=== PATIENT | female | born 1985 | race American Indian/Alaskan Native ===

== ENCOUNTER 2017-10-20 20:00 | Emergency (ER) | payer SELFPAY ==
[2017-10-21 01:48] VITALS: BP 110/70
[2017-10-21] MEDS ORDERED: MOTRIN PO ONE (03:23)
--- NOTE | 2017-10-21 03:23 | Emergency Department Report ---
ED Extremity Problem HPI - General Chief complaint: Extremity Injury, Lower Stated complaint: LT LEG PAIN Time Seen by Provider: 10/21/17 01:13 Source: patient, family Mode of arrival: Ambulatory Limitations: No Limitations - History of Present Illness Initial comments: Patient here complaining of pain to her left leg that started last night. She says she says similar incident in the past. She says she is a history of spasm to her left thigh and upper leg and when she has spasms she gets bruising. Patient denies ever having any ultrasound but reports she has been to the doctor about this problem. Patient is visiting from [place] and that she'll be here for about another month. She denies any chest pain or shortness of breath. Patient recently traveled from [place] via airplane. Denies being on control. Denies any calf pain. Patient does not have history of DVT she said that her family member told her that it might be a blood clot when she gets the bruise in she's never been diagnosed with DVT. She has a history of asthma. Denies any numbness or chilling to extremities. Pain is 8-10 and achy worse with walking and better with rest. Denies any clotting disorder. She does have family history of DVT. Denies any abdominal or back pain. Patient said she doesn't remember if she injured her leg last night she just woke up this morning and saw the bruise then to her left proximal leg in her lateral mid knees knee. Denies taking any medication. Pain worse with walking and better with rest. As noted in triage note that patient said that her left leg started last night and that calf swollen after fall. Patient told me that she did not fall he does not have any swelling to her calf. MD Complaint: extremity pain Onset/Timin -: days(s) Location: left, lower extremity History of Same: Yes -: No myalgia, Yes arthralgia, No fever, No associated dyspnea, No associated chest pain Radiation: none Severity scale (0 -10): 8 Quality: aching Consistency: intermittent Improves with: immobilization, rest Worsens with: weight bearing, walking, exertion, palpation Associated Symptoms: arthralgias, rash (reports bruising to upper leg). denies : chest pain, shortness of breath, fever, myalgias - Related Data Previous Rx's Medication Instructions Recorded Last Taken Type Ibuprofen [Motrin] 600 mg PO Q8H PRN #15 tablet 10/21/17 Unknown Rx Allergies Allergy/AdvReac Type Severity Reaction Status Date / Time No Known Allergies Allergy Unverified 10/20/17 20:06 ED Review of Systems ROS: Stated complaint: LT LEG PAIN Other details as noted in HPI Comment: All other systems reviewed and negative Constitutional: no symptoms reported Respiratory: no symptoms reported Cardiovascular: denies: chest pain, palpitations, dyspnea on exertion, orthopnea , edema, syncope, paroxysmal nocturnal dyspnea Gastrointestinal: denies: abdominal pain, nausea, vomiting Genitourinary: denies: dysuria, hematuria Musculoskeletal: arthralgia. denies: back pain, joint swelling, myalgia Skin: other (bruising to upper leg) Neurological: denies: headache, weakness, numbness, paresthesias, confusion, abnormal gait, vertigo ED Past Medical Hx - Past Medical History Previous Medical History?: Yes Hx Asthma: Yes - Surgical History Past Surgical History?: No - Family History Family history: hypertension, vascular disease - Social History Smoking Status: Former Smoker Substance Use Type: None, Marijuana - Medications Home Medications: Home Medications Medication Instructions Recorded Confirmed Last Taken Type Ibuprofen [Motrin] 600 mg PO Q8H PRN #15 tablet 10/21/17 Unknown Rx ED Physical Exam - General Limitations: No Limitations General appearance: alert, in no apparent distress - Head Head exam: Present: atraumatic, normocephalic, normal inspection, other (normal exam) - Eye Eye exam: Present: normal appearance, PERRL, EOMI Pupils: Present: normal accommodation - ENT ENT exam: Present: normal exam, normal orophraynx, mucous membranes moist - Neck Neck exam: Present: normal inspection, full ROM, other (no C-spine tenderness). Absent: tenderness, meningismus, lymphadenopathy - Respiratory Respiratory exam: Present: normal lung sounds bilaterally. Absent: respiratory distress, wheezes, rales, rhonchi, stridor, chest wall tenderness, accessory muscle use, decreased breath sounds, prolonged expiratory - Cardiovascular Cardiovascular Exam: Present: regular rate, normal rhythm, normal heart sounds. Absent: systolic murmur, diastolic murmur - GI/Abdominal GI/Abdominal exam: Present: soft, rigid. Absent: distended, tenderness, guarding, rebound, normal bowel sounds, organomegaly, mass, bruit, pulsatile mass, hernia - Extremities Exam Extremities exam: Present: normal inspection, full ROM, tenderness ( proximal leg, left), normal capillary refill, other (no clubbing, cyanosis or edema to extremities. No neurovascular compromise. +2 pulses in all extremities. Patient with bruising to left proximal leg. No laceration. +5/5 strength in all extremities.). Absent: pedal edema, joint swelling, calf tenderness - Expanded Lower Extremity Exam Left Hip exam: Present: normal inspection, full ROM, pelvic stability. Absent: tenderness, swelling, abrasion, laceration, ecchymosis, deformity, crepidus, dislocation, erythema, external rotation, internal rotation, shortening Upper Leg exam: Present: normal inspection, full ROM. Absent: tenderness, swelling, abrasion, laceration, ecchymosis, deformity, crepidus, dislocation, erythema Knee exam: Present: normal inspection, full ROM, full knee extension. Absent: tenderness, swelling, abrasion, laceration, ecchymosis, deformity, crepidus, dislocation, erythema, effusion, pain w/ pronation/supination, posterior draw sign, pain/laxity with valgus, pain/laxity with varus Lower Leg exam: Present: normal inspection, full ROM, tenderness, ecchymosis ( Proximal left inner leg with mild superficial bruising). Absent: swelling, abrasion, laceration, deformity, crepidus, dislocation, erythema, palpable cord , Cheryl's sign Ankle exam: Present: normal inspection, full ROM. Absent: tenderness, swelling , abrasion, laceration, ecchymosis, deformity, crepidus, dislocation, erythema Foot/Toe exam: Present: normal inspection, full ROM. Absent: tenderness, swelling, abrasion, laceration, ecchymosis, deformity, crepidus, dislocation, erythema, amputation, puncture wound, foreign body, calcaneal tenderness, tenderness at base of 5th metatarsal, nail avulsion, subungual hematoma Neuro vascular tendon exam: Present: no vascular compromise. Absent: pulse deficit, abnormal cap refill, motor deficit, sensory deficit, tendon deficit, extremity cold to touch, pallor, abnormal 2-point discrimination, decreased fine /light touch, foot drop, peroneal nerve deficit, significant pain with passive ROM of distal joint Gait: Positive: observed and normal - Back Exam Back exam: Present: normal inspection, full ROM, other (ambulates without any difficulties). Absent: tenderness, CVA tenderness (R), CVA tenderness (L), muscle spasm, paraspinal tenderness, vertebral tenderness, rash noted - Neurological Exam Neurological exam: Present: alert, oriented X3, normal gait, reflexes normal. Absent: motor sensory deficit - Psychiatric Psychiatric exam: Present: normal affect, normal mood - Skin Skin exam: Present: warm, dry, intact, ecchymosis (superficial ecchymotic area to the left proximal leg. Tender to palpate.). Absent: urticaria, vesicles - Expanded Skin Exam Expanded Type of lesion: Present: other (ecchymosis) Distribution of rash: LLE Description of rash: Present: size (2 x 2 centimeter, circular), tenderness, other (ecchymosis). Absent: erythematous, swelling ED Course Vital Signs 10/20/17 10/21/17 10/21/17 20:07 01:47 03:36 Temperature 98 F Pulse Rate 66 71 Respiratory 18 18 18 Rate Blood Pressure 104/84 Blood Pressure 110/70 [Left] O2 Sat by Pulse 99 97 Oximetry - Reevaluation(s) Reevaluation #1: 10/21/17 05:15 She received Motrin 800 mg emergency room for pain and voice relief of pain. ED Medical Decision Making - Lab Data Result diagrams: 10/21/17 04:02 10/21/17 04:02 Lab Results 10/21/17 10/21/17 10/21/17 Range/Units 04:02 04:02 04:02 WBC 7.4 (4.5-11.0) K/mm3 RBC 3.93 (3.65-5.03) M/mm3 Hgb 12.3 (10.1-14.3) gm/dl Hct 36.4 (30.3-42.9) % MCV 93 (79-97) fl MCH 31 (28-32) pg MCHC 34 (30-34) % RDW 12.6 L (13.2-15.2) % Plt Count 169 (140-440) K/mm3 Lymph % (Auto) 37.1 H (13.4-35.0) % [place] % (Auto) 10.1 H (0.0-7.3) % Eos % (Auto) 1.7 (0.0-4.3) % Baso % (Auto) 0.8 (0.0-1.8) % Lymph # 2.8 (1.2-5.4) K/mm3 [place]ow # 0.7 (0.0-0.8) K/mm3 Eos # 0.1 (0.0-0.4) K/mm3 Baso # 0.1 (0.0-0.1) K/mm3 Seg Neutrophils % 50.3 (40.0-70.0) % Seg Neutrophils # 3.7 (1.8-7.7) K/mm3 PT 12.4 (12.2-14.9) Sec. INR 0.88 (0.87-1.13) APTT 26.0 (24.2-36.6) Sec. D-Dimer < 135 (0-234) ng/mlDDU Sodium 138 (137-145) mmol/L Potassium 3.6 (3.6-5.0) mmol/L Chloride 100.7 (98-107) mmol/L Carbon Dioxide 24 (22-30) mmol/L Anion Gap 17 mmol/L BUN 9 (7-17) mg/dL Creatinine 0.7 (0.7-1.2) mg/dL Estimated GFR > 60 ml/min BUN/Creatinine Ratio 13 % Glucose 87 (65-100) mg/dL Calcium 8.8 (8.4-10.2) mg/dL HCG, Qual (Negative) 10/21/17 Range/Units 04:02 WBC (4.5-11.0) K/mm3 RBC (3.65-5.03) M/mm3 Hgb (10.1-14.3) gm/dl Hct (30.3-42.9) % MCV (79-97) fl MCH (28-32) pg MCHC (30-34) % RDW (13.2-15.2) % Plt Count (140-440) K/mm3 Lymph % (Auto) (13.4-35.0) % Bartow % (Auto) (0.0-7.3) % Eos % (Auto) (0.0-4.3) % Baso % (Auto) (0.0-1.8) % Lymph # (1.2-5.4) K/mm3 [place] # (0.0-0.8) K/mm3 Eos # (0.0-0.4) K/mm3 Baso # (0.0-0.1) K/mm3 Seg Neutrophils % (40.0-70.0) % Seg Neutrophils # (1.8-7.7) K/mm3 PT (12.2-14.9) Sec. INR (0.87-1.13) APTT (24.2-36.6) Sec. D-Dimer (0-234) ng/mlDDU Sodium (137-145) mmol/L Potassium (3.6-5.0) mmol/L Chloride (98-107) mmol/L Carbon Dioxide (22-30) mmol/L Anion Gap mmol/L BUN (7-17) mg/dL Creatinine (0.7-1.2) mg/dL Estimated GFR ml/min BUN/Creatinine Ratio % Glucose (65-100) mg/dL Calcium (8.4-10.2) mg/dL HCG, Qual Negative (Negative) - Medical Decision Making ED course: Patient here complaining of left upper leg pain with bruising. She says she's had this in the past. She told triage nurse that she fell last night but she reports to me that she did not fall. Physical finding for ecchymotic area to the proximal leg without any calf involvement. Wells criteria score patient at 0 and gave option to do d-dimer. D-dimer within normal limits. CBC and chemistry are within normal limits and patient test is negative. PT PTT normal limits. Patient was given Motrin 800 mg emergency room for pain. I discussed with her her test results and I discussed with her she needs to rest, ice, compress and elevate affected area over the next 3 days and take Motrin as prescribed. Patient is visiting from [place] and doesn't know when she is going back so I gave her a [facility] and told her to call to schedule an appointment for family practice. Patient discharged home with prescription for Motrin. I discussed this case with Dr. Gaming with patient presentation of leg pain and similar incident in the past with bruising in, lab result discussed included d- dimer and in agreement that the patient can be discharged home to follow-up at [facility]. Patient was undescended discharge instruction and treatment plan and discharged home with her family. Critical care attestation.: If time is entered above; I have spent that time in minutes in the direct care of this critically ill patient, excluding procedure time. ED Disposition Clinical Impression: Pain in left lower leg, Ecchymosis Disposition: - TO HOME OR SELFCARE Is pt being admited?: No Does the pt Need Aspirin: No Condition: Stable Instructions: Arthralgia (ED) Additional Instructions: Please call [facility] and schedule an appointment for follow-up visit on Monday. This will be for 09/12/2017. Take Motrin as prescribed. If symptoms worsens, return to the emergency room. rest, ice, elevate affected area over the next 72 hours Prescriptions: Ibuprofen [Motrin] 600 mg PO Q8H PRN #15 tablet PRN Reason: Pain Referrals: PRIMARY CAREMD [Primary Care Provider] - 10/23/17
[2017-10-21 04:20] LABS: Basophils # (Auto) 0.1 K/mm3 (0.0-0.1); Basophils % (Auto) 0.8 % (0.0-1.8); Eosinophils # (Auto) 0.1 K/mm3 (0.0-0.4); Eosinophils % (Auto) 1.7 % (0.0-4.3); Hematocrit 36.4 % (30.3-42.9); Hemoglobin 12.3 gm/dl (10.1-14.3); Lymphocytes # (Auto) 2.8 K/mm3 (1.2-5.4); Lymphocytes % (Auto) 37.1 % (13.4-35.0); Mean Corpuscular HGB Conc 34 % (30-34); Mean Corpuscular Hemoglobin 31 pg (28-32); Mean Corpuscular Volume 93 fl (79-97); Monocytes # (Auto) 0.7 K/mm3 (0.0-0.8); Monocytes % (Auto) 10.1 % (0.0-7.3); Platelet Count 169 K/mm3 (140-440); Red Blood Count 3.93 M/mm3 (3.65-5.03); Red Cell Distribution Width 12.6 % (13.2-15.2)
[2017-10-21 04:31] LABS: INR 0.88 (0.87-1.13)
[2017-10-21 04:36] LABS: BUN/Creatinine Ratio 13; Blood Urea Nitrogen 9 mg/dL (7-17); Calcium 8.8 mg/dL (8.4-10.2); Hemolysis Index 0
== END 2017-10-21 05:55 | disposition home or self-care (01) ==
LOC: ED 20:00
DX: S80.12XA Contusion of left lower leg, initial encounter (principal); J45.909 Unspecified asthma, uncomplicated; F12.10 Cannabis abuse, uncomplicated; Z87.891 Personal history of nicotine dependence; W19.XXXA Unspecified fall, initial encounter; Y93.89 Activity, other specified; Y99.8 Other external cause status; Y92.89 Other specified places as the place of occurrence of the external cause
CPT/HCPCS: 36415; 80048; 84703; 85025; 85379; 85610; 85730; 99283

== ENCOUNTER 2019-07-07 09:23 | Emergency (ER) | payer OTHER ==
[2019-07-07 09:36] VITALS: BP 100/69
[2019-07-07] MEDS ORDERED: IBUPROFEN 800 MG TAB PO ONE (11:49)
--- NOTE | 2019-07-07 11:57 | Emergency Department Report ---
- General Chief Complaint: Upper Respiratory Infection Stated Complaint: CHEST PX/DIZZY/HEADACHE Source: patient Mode of arrival: Ambulatory Limitations: No Limitations - History of Present Illness Initial Comments: 33-year-old female complaining of 3 days of dry cough chills and body aches and headache. Chest hurts with coughing only. Denies fever, no vomiting or diarrhea. Smoker denies any past medical history. MD Complaint: cough Quality: aching Consistency: constant Improves With: OTC cold medicine Worsens With: nothing Associated Symptoms: chills, myalgias, headache, nasal congestion, cough. denies: chest pain, shortness of breath, abdominal pain, nausea, vomiting, diarrhea, dysuria, rash, confusion, right sweats, weight loss, ear pain Treatments Prior to Arrival: "cold medicine" - Related Data Previous Rx's Medication Instructions Recorded Last Taken Type ALBUTEROL Inhaler (OR & NICU) 2 puff IH Q4HR PRN #1 inhalation 09/05/18 Unknown Rx [ProAir HFA Inhaler] predniSONE [Deltasone] 20 mg PO DAILY #15 tablet 09/05/18 Unknown Rx Ibuprofen [Motrin 600 MG tab] 600 mg PO Q8H PRN #15 tablet 07/07/19 Unknown Rx Allergies Allergy/AdvReac Type Severity Reaction Status Date / Time No Known Allergies Allergy Verified 07/07/19 09:24 ED Review of Systems ROS: Stated complaint: CHEST PX/DIZZY/HEADACHE Other details as noted in HPI Comment: All other systems reviewed and negative Constitutional: chills, malaise ENT: denies: ear pain, throat pain Respiratory: cough. denies: shortness of breath, SOB with exertion, wheezing Cardiovascular: denies: chest pain, palpitations, dyspnea on exertion Endocrine: no symptoms reported Gastrointestinal: denies: abdominal pain, nausea, vomiting, diarrhea, constip ation Musculoskeletal: myalgia. denies: back pain Skin: denies: rash, lesions Neurological: headache. denies: weakness, numbness, paresthesias, confusion, abnormal gait, vertigo ED Past Medical Hx - Past Medical History Previous Medical History?: Yes Hx Asthma: Yes - Surgical History Past Surgical History?: No - Social History Smoking Status: Current Some Day Smoker Substance Use Type: Marijuana - Medications Home Medications: Home Medications Medication Instructions Recorded Confirmed Last Taken Type ALBUTEROL Inhaler (OR & NICU) 2 puff IH Q4HR PRN #1 inhalation 09/05/18 Unknown Rx [ProAir HFA Inhaler] predniSONE [Deltasone] 20 mg PO DAILY #15 tablet 09/05/18 Unknown Rx Ibuprofen [Motrin 600 MG tab] 600 mg PO Q8H PRN #15 tablet 07/07/19 Unknown Rx ED Physical Exam - General Limitations: No Limitations General appearance: alert, in no apparent distress - Head Head exam: Present: atraumatic - Eye Eye exam: Present: normal appearance, PERRL, EOMI. Absent: scleral icterus, conjunctival injection - ENT ENT exam: Present: mucous membranes moist, TM's normal bilaterally, normal external ear exam - Neck Neck exam: Present: normal inspection, full ROM. Absent: tenderness, lymphadenopathy - Respiratory Respiratory exam: Present: normal lung sounds bilaterally, chest wall tenderness. Absent: respiratory distress, wheezes, rales, rhonchi - Cardiovascular Cardiovascular Exam: Present: regular rate, normal rhythm, normal heart sounds - GI/Abdominal GI/Abdominal exam: Present: soft, normal bowel sounds. Absent: distended, tenderness, guarding, rebound, rigid - Rectal Rectal exam: Absent: deferred - Extremities Exam Extremities exam: Present: normal inspection, normal capillary refill. Absent: pedal edema - Neurological Exam Neurological exam: Present: alert, oriented X3 - Psychiatric Psychiatric exam: Present: normal affect - Skin Skin exam: Present: warm, dry, intact, normal color ED Course Vital Signs 07/07/19 09:35 Temperature 99.4 F Pulse Rate 85 Respiratory 20 Rate Blood Pressure 100/69 [Right] O2 Sat by Pulse 100 Oximetry ED Medical Decision Making - Medical Decision Making 33 yo female with flu like symptoms. Positive Rapid infleunza A. Discharge home with Rx for Ibuprofen 600mg po prn bodyaches. Pt states she cannot afford otc advil. Follow up with [facility] for any worsening symptoms. Critical Care Time: Yes Critical care attestation.: If time is entered above; I have spent that time in minutes in the direct care of this critically ill patient, excluding procedure time. ED Disposition Clinical Impression: Influenza A Disposition: DC-01 TO HOME OR SELFCARE Condition: Stable Instructions: Electrolyte Supplement (By mouth), Influenza (ED) Additional Instructions: Take Advil 2-3 (2oomg ) tablets every 6 hours as needed for bodyaches or fever. Rest. Drink at least 8 glasses of swan every day. Follow up with [facility] IN 2-3 DAYS. Return to the ER for any worsening symptoms Prescriptions: Ibuprofen [Motrin 600 MG tab] 600 mg PO Q8H PRN #15 tablet PRN Reason: Pain Referrals: PRIMARY CARE, [Primary Care Provider] - 3-5 Days Time of Disposition: 12:34
== END 2019-07-07 12:49 | disposition home or self-care (01) ==
LOC: ED 09:23
DX: J10.1 Influenza due to other identified influenza virus with other respiratory manifestations (principal); J45.909 Unspecified asthma, uncomplicated; F17.200 Nicotine dependence, unspecified, uncomplicated; F12.10 Cannabis abuse, uncomplicated; Z79.1 Long term (current) use of non-steroidal anti-inflammatories (NSAID); Z79.899 Other long term (current) drug therapy
CPT/HCPCS: 87400

== ENCOUNTER 2020-09-29 12:16 | Emergency (ER) | payer OTHER ==
[2020-09-29 12:58] VITALS: BP 101/65
[2020-09-29] MEDS ORDERED: ACETAMINOPHEN 500 MG TAB PO ONE (12:58)
--- NOTE | 2020-09-29 13:00 | Event Note ---
ED Screening Note Date of service: 09/29/20 Time: 12:59 ED Screening Note: 35-year-old female with no significant past history presents to the ER today with complaints of abdominal pain. Onset this morning. Patient is about 7 weeks based on her last period which was August 20. Her SLEEVE FIXER is at life cycle. She denies any abnormal vaginal bleeding or discharge. She is Ab0. This initial assessment/diagnostic orders/clinical plan/treatment(s) is/are subject to change based on patients health status, clinical progression and re- assessment by fellow clinical providers in the ED. Further treatment and workup at subsequent clinical providers discretion. Patient/guardian urged not to elope from the ED as their condition may be serious if not clinically assessed and managed. Initial orders include: CBC, CMP, lipase, urinalysis, quant hCG and ultrasound
[2020-09-29 14:48] LABS: Basophils # (Auto) 0.1 K/mm3 (0.0-0.1); Basophils % (Auto) 0.6 % (0.0-1.8); Eosinophils # (Auto) 0.1 K/mm3 (0.0-0.4); Eosinophils % (Auto) 0.7 % (0.0-4.3); Hematocrit 36.9 % (30.3-42.9); Hemoglobin 12.1 gm/dl (10.1-14.3); Lymphocytes # (Auto) 2.1 K/mm3 (1.2-5.4); Lymphocytes % (Auto) 17.4 % (13.4-35.0); Mean Corpuscular HGB Conc 33 % (30-34); Mean Corpuscular Volume 95 fl (79-97); Monocytes # (Auto) 0.9 K/mm3 (0.0-0.8); Monocytes % (Auto) 7.5 % (0.0-7.3); Platelet Count 227 K/mm3 (140-440); Red Blood Count 3.89 M/mm3 (3.65-5.03); Red Cell Distribution Width 12.5 % (13.2-15.2)
[2020-09-29 15:10] LABS: Bilirubin,Urine NEG (Negative); Blood,Urine SM (Negative); Color,Urine Yellow (Yellow); Mucus,Urine FEW /HPF; Protein,Urine <15 mg/dL mg/dL (Negative)
[2020-09-29 15:11] LABS: BUN/Creatinine Ratio 9; Blood Urea Nitrogen 7 mg/dL (7-17); Calcium 9.3 mg/dL (8.4-10.2); Hemolysis Index 5
[2020-09-29] MEDS ORDERED: ACETAMINOPHEN 500 MG TAB ONE (15:16)
--- NOTE | 2020-09-29 15:16 | Ultrasound Report ---
FIRSTTRIMESTER OBSTETRIC ULTRASOUND HISTORY: 35-year-old female with provided clinical history of lower abdominal pain/7 weeks . Right pelvic pain started today. COMPARISON: None. TECHNIQUE: Routine transabdominal OB ultrasound performed. FINDINGS: Uterus: Mildly enlarged measuring 10.1 x 5.7 x 6.1 cm. Gestational Sac: Well-defined oval shape and intrauterine in location. Gestational sac diameter is 1 .3 cm with estimated gestational age of 6 weeks and 1 day. Yolk Sac: Normal in appearance. Fetus/Embryo: Unable to determine accurate crown-rump length EXAMINATION. Embryonic/ anatomy is too small for evaluation. Embryonic/ cardiac activity: Not visualized on this examination. Placenta: Too small for evaluation. Amniotic fluid volume: Subjectively appropriate for gestational age. Ovaries: The right ovary is normal in size and appearance with normal blood flow, measuring 3.6 x 2. 9 x 2.4 cm. The left ovary is normal in size and appearance with normal blood flow, measuring 2.8 x 1.2 x 2.4 cm. Corpus luteum is not definitively visualized. Additional findings: None. IMPRESSION 1. Early, single intrauterine gestation with estimated gestational age of 6 weeks and 1 day based on gestational sac diameter. No heart tones are able to be obtained on this examination possibly s econdary to early gestation. Consider ultrasound follow-up in 7-14 days for further evaluation. Signer Name: Octaviano Wallace MD Signed: 09/29/2020 3:11 PM Workstation Name: [id number]
[2020-09-29 15:17] LABS: Alanine Aminotransferase < 5 units/L (7-56)
--- NOTE | 2020-09-29 15:42 | Emergency Department Report ---
ED Female HPI - General Chief complaint: Abdominal Pain Stated complaint: SHARP ABD PAINS Time Seen by Provider: 09/29/20 12:58 Source: patient Mode of arrival: Ambulatory Limitations: No Limitations - History of Present Illness Initial comments: 35-year-old female with no significant past history presents to the ER today with complaints of abdominal pain. Onset this morning. Patient is about 7 weeks based on her last period which was August 20. Her [facility] [employer] is at [facility]. She denies any abnormal vaginal bleeding or discharge. She is Ab0. She has an appointment for outpatient US on of this month. MD Complaint: other (Abdominal pain) -: Sudden (this am) - Related Data Previous Rx's Medication Instructions Recorded Last Taken Type Albuterol Mdi (or & Nicu Only) 2 puff IH Q4HR PRN #1 inhalation 09/05/18 Unknown Rx [ProAir HFA Inhaler] predniSONE [Deltasone] 20 mg PO DAILY #15 tablet 09/05/18 Unknown Rx Ibuprofen [Motrin 600 MG tab] 600 mg PO Q8H PRN #15 tablet 07/07/19 Unknown Rx Allergies Allergy/AdvReac Type Severity Reaction Status Date / Time No Known Allergies Allergy Verified 07/07/19 09:24 ED Review of Systems ROS: Stated complaint: SHARP ABD PAINS Other details as noted in HPI ED Past Medical Hx - Past Medical History Previous Medical History?: Yes Hx Asthma: Yes - Surgical History Past Surgical History?: Yes Additional Surgical History: oral - Social History Smoking Status: Never Smoker Substance Use Type: None - Medications Home Medications: Home Medications Medication Instructions Recorded Confirmed Last Taken Type Albuterol Mdi (or & Nicu Only) 2 puff IH Q4HR PRN #1 inhalation 09/05/18 Unknown Rx [ProAir HFA Inhaler] predniSONE [Deltasone] 20 mg PO DAILY #15 tablet 09/05/18 Unknown Rx Ibuprofen [Motrin 600 MG tab] 600 mg PO Q8H PRN #15 tablet 07/07/19 Unknown Rx ED Physical Exam - General Limitations: No Limitations General appearance: alert, in no apparent distress - Head Head exam: Present: atraumatic, normocephalic, normal inspection - Eye Eye exam: Present: normal appearance, PERRL, EOMI Pupils: Present: normal accommodation - ENT ENT exam: Present: normal exam - Respiratory Respiratory exam: Present: normal lung sounds bilaterally. Absent: respiratory distress - Cardiovascular Cardiovascular Exam: Present: regular rate, normal rhythm, normal heart sounds - GI/Abdominal GI/Abdominal exam: Present: soft. Absent: distended, tenderness, guarding - Neurological Exam Neurological exam: Present: alert, oriented X3, CN II-XII intact - Psychiatric Psychiatric exam: Present: normal affect, normal mood - Skin Skin exam: Present: intact ED Course Vital Signs 09/29/20 12:55 Temperature 98.6 F Pulse Rate 68 Respiratory 18 Rate Blood Pressure 101/65 O2 Sat by Pulse 97 Oximetry ED Medical Decision Making - Lab Data Result diagrams: 09/29/20 13:05 09/29/20 13:05 - Radiology Data Radiology results: report reviewed Patient: VAUGHN PUCKETT MR#: [id number] : 1985 Acct:[id number] Age/Sex: 35 / F ADM Date: 09/29/20 Loc: ED Attending Dr: Ordering Physician: ESMER CRUZ Date of Service: 09/29/20 Procedure(s): US OB <= 14 weeks fetus Accession Number(s): [id number] cc: ESMER CRUZ FIRSTTRIMESTER OBSTETRIC ULTRASOUND HISTORY: 35-year-old female with provided clinical history of lower abdominal pain/7 weeks . Right pelvic pain started today. COMPARISON: None. TECHNIQUE: Routine transabdominal OB ultrasound performed. FINDINGS: Uterus: Mildly enlarged measuring 10.1 x 5.7 x 6.1 cm. Gestational Sac: Well-defined oval shape and intrauterine in location. Gestational sac diameter is 1.3 cm with estimated gestational age of 6 weeks and 1 day. Yolk Sac: Normal in appearance. Fetus/Embryo: Unable to determine accurate crown-rump length EXAMINATION. Embryonic/ anatomy is too small for evaluation. Embryonic/ cardiac activity: Not visualized on this examination. Placenta: Too small for evaluation. Amniotic fluid volume: Subjectively appropriate for gestational age. Ovaries: The right ovary is normal in size and appearance with normal blood flow, measuring 3.6 x 2.9 x 2.4 cm. The left ovary is normal in size and appearance with normal blood flow, measuring 2.8 x 1.2 x 2.4 cm. Corpus luteum is not definitively visualized. Additional findings: None. IMPRESSION 1. Early, single intrauterine gestation with estimated gestational age of 6 weeks and 1 day based on gestational sac diameter. No heart tones are able to be obtained on this examination possibly secondary to early gestation. Consider ultrasound follow-up in 7-14 days for further evaluation. Signer Name: Andrey Wallace MD Signed: 09/29/2020 3:11 PM Workstation Name: [id number] Transcribed By: Dictated By: ANDREY WALLACE III Electronically Authenticated By: ANDREY WALLACE III Signed Date/Time: 09/29/201510 DD/ 06 TD/TT: - Medical Decision Making 35-year-old female with no significant past history presents to the ER today wit h complaints of abdominal pain. Onset this morning. Patient is about 7 weeks based on her last period which was August 20. Her [facility] [employer]. She denies any abnormal vaginal bleeding or discharge. She is Ab0. She has an appointment for outpatient US on of this month. 1550: Labs reviewed and unremarkable. Quant HCG 13840. US showsEarly, single intrauterine gestation with estimated gestational age of 6 weeks and 1 day based on gestational sac diameter. No heart tones are able to be obtained on this examination possibly secondary to early gestation. Consider ultrasound follow-up in 7-14 days for further evaluation. Patient is resting comfortably. She is not in any acute distress. She is well- appearing, nontoxic and appears well-hydrated. She has non surgical abdominal exam. He is neurologically intact and has been observed ambulating in the ER no distress. No indication for any further work-up, emergent consult or admission at this time. Discussed lab results and ultrasound results with patient. Recommend that she keep her appointment with her [employer] for the . Discussed worsening signs and symptoms with patient and if any of those develop she needs to return to the ER. Patient stable at time of discharge. Critical care attestation.: If time is entered above; I have spent that time in minutes in the direct care of this critically ill patient, excluding procedure time. ED Disposition Clinical Impression: Abdominal pain in Disposition: DC-01 TO HOME OR SELFCARE Is pt being admited?: No Does the pt Need Aspirin: No Condition: Stable Instructions: Abdominal Pain During , Abdominal Pain (ED) Additional Instructions: You can take Tylenol as needed for pain. Keep your appointment with [facility] for you follow-up ultrasound on the . Return to the ER if your symptoms changes or worsens in any way. Referrals: [facility] [Provider Group] - 3-5 Days Forms: Work/School Release Form(ED) Time of Disposition: 15:44
== END 2020-09-29 16:02 | disposition home or self-care (01) ==
LOC: ED 12:16
DX: O26.891 Other specified pregnancy related conditions, first trimester (principal); O99.511 Diseases of the respiratory system complicating pregnancy, first trimester; R10.9 Unspecified abdominal pain; J45.909 Unspecified asthma, uncomplicated; Z79.899 Other long term (current) drug therapy; Z98.890 Other specified postprocedural states; Z3A.01 Less than 8 weeks gestation of pregnancy
CPT/HCPCS: 36415; 76801; 80053; 81001; 83690; 84702; 85025